=== PATIENT | male | born 1950 | race Caucasian/White ===

== ENCOUNTER 2016-05-21 07:10 | Day surgery (SDC) | payer OTHER ==
[~2016-05-21 07:10] MED LIST: Lactated Ringers 1,000 ML IV SCH; ceFAZolin 2 GM in Premix Bag 1 BAG IV ONE
--- NOTE | 2016-05-21 07:29 | PCM.PREANE ---
Preanesthetic Assessment - Anesthesia/Transfusion/Family Hx Anesthesia History: Prior Anesthesia Without Reaction Other Type of Anesthesia Reaction Comment: pt states "last knee scope was done under local due to his smoking" Family History of Anesthesia Reaction: No Transfusion History: No Prior Transfusion(s) - Review of Systems General: No Symptoms Pulmonary: No Symptoms Cardiovascular: No Symptoms Gastrointestinal: No symptoms Neurological: No Symptoms Other: Reports: None - Physical Assessment NPO Status Date: 05/20/16 O2 Sat by Pulse Oximetry: 95 Respiratory Rate: 18 Vital Signs: Last Vital Signs Temp 36.9 C 05/21/16 07:24 Pulse 62 05/21/16 07:24 Resp 18 05/21/16 07:24 BP 135/87 05/21/16 07:24 Pulse Ox 95 05/21/16 07:24 Height: 1.8 m Weight: 102.512 kg ASA Class: 2 Mental Status: Alert & Oriented x3 Airway Class: Mallampati = 2 Dentition: Reports: Missing Tooth/Teeth ROM/Head Extension: Full Lungs: Clear to auscultation, Normal respiratory effort Cardiovascular: Regular Rate, Regular Rhythm - Allergies Allergies/Adverse Reactions: Allergies Allergy/AdvReac Type Severity Reaction Status Date / Time No Known Allergies Allergy Verified 01/27/16 14:30 - Anesthesia Plan Pre-Op Medication Ordered: None - Acknowledgements Anesthesia Type Planned: General Anesthesia, MAC (Potassium pending) Pt an Appropriate Candidate for the Planned Anesthesia: Yes Alternatives and Risks of Anesthesia Discussed w Pt/Guardian: Yes Pt/Guardian Understands and Agrees with Anesthesia Plan: Yes PreAnesthesia Questionnaire HEENT History: Reports: Allergic rhinitis, Epistaxis, Hard of hearing Other HEENT History: wears glasses, has ana hearing aids, (partial but does not wear them) Cardiovascular History: Reports: Hypertension Respiratory History: Reports: Asthma Gastrointestinal History: Reports: Other (see below) Other Gastrointestinal History: occasional heartburn Musculoskeletal History: Reports: Gout, Other (see below) Other Musculoskeletal History: chronic neck pain Endocrine/Metabolic History: Reports: Diabetes, type II, Obesity/BMI 30+, Other (see below) Other Endocrine/Metabolic History: was previously on metformin but no longer takes Dermatologic History: Reports: Other (see below) Other Dermatologic History: dry skin - Past Surgical History Head Surgeries/Procedures: Reports: None Musculoskeletal Surgical History: Reports: Arthroscopic knee, Carpal tunnel, Shoulder surgery - SUBSTANCE USE Smoking Status *Q: Former Smoker Tobacco Use Within Last Twelve Months: No Days Per Week of Alcohol Use: 0 Number of Drinks Per Day: 0 Total Drinks Per Week: 0 Recreational Drug Use History: No - HOME MEDS Home Medications: Home Meds Allopurinol [Zyloprim] 300 mg PO DAILY 04/19/14 [History] Budesonide/Formoterol [Symbicort 160-4.5 MCG] 1 puff INH ASDIRECTED PRN [History] Hydrochlorothiazide 25 mg PO DAILY 04/19/14 [History] Potassium Chloride [Klor-Con M20] 2 tab PO DAILY 04/19/14 [History] amLODIPine Besylate [Amlodipine Besylate] 10 mg PO DAILY 04/19/14 [History] Albuterol Sulfate [Proair Hfa] 2 puff INH Q4H PRN 05/17/16 [History] Fluticasone Propionate [Flonase Allergy Relief] 2 spray NASBOTH DAILY 05/17/16 [ History] Furosemide 40 mg PO BID 05/17/16 [History] Loratadine 10 mg PO DAILY 05/17/16 [History] Losartan Potassium 25 mg PO DAILY 05/17/16 [History] Oxybutynin Chloride 5 mg PO BID 05/17/16 [History] Polyethylene Glycol 3350 1 dose PO ASDIRECTED PRN 05/17/16 [History] Urea 1 applic TOP ASDIRECTED PRN 05/17/16 [History] - CURRENT (IN HOUSE) MEDS Current Meds: Current Medications Lactated Ringer's (Ringers, Lactated) 1,000 mls @ 125 mls/hr IV ASDIRECTED VAN Last Admin: 05/21/16 07:26 Dose: 125 mls/hr Discontinued Medications Cefazolin Sodium/Dextrose 2 gm (/ Premix) 50 mls @ 100 mls/hr IV ONETIME ONE Stop: 05/21/16 05:29 Preanesthetic Assessment - ANESTHESIA/TRANSFUSION/FAMILY HX Anesthesia/Transfusion History: No Prior Transfusion(s), Prior Anesthesia Other Type of Anesthesia Reaction Comment: pt states "last knee scope was done under local due to his smoking" Family History of Anesthesia Reaction: No Other Intubation History Comment: no known problems - PHYSICAL ASSESSMENT O2 Sat by Pulse Oximetry: 95 RR: 18 Vital Signs: Last Vital Signs Temp 36.9 C 05/21/16 07:24 Pulse 62 05/21/16 07:24 Resp 18 05/21/16 07:24 BP 135/87 05/21/16 07:24 Pulse Ox 95 05/21/16 07:24 Height: 1.8 m Weight: 102.512 kg - ALLERGIES Allergies/Adverse Reactions: Allergies Allergy/AdvReac Type Severity Reaction Status Date / Time No Known Allergies Allergy Verified 01/27/16 14:30
[2016-05-21] MEDS ORDERED: Propofol 200 MG/20 ML SDV ONE (07:34)
[2016-05-21] MEDS ORDERED: fentaNYL 100 MCG/2 ML SDV ONE (07:34)
[2016-05-21] MEDS ORDERED: Midazolam 1 MG/ML 2 ML SDV ONE (07:34)
[2016-05-21] MEDS ORDERED: Bupivacaine 0.25%/EPINEPHrine 1:200,000 10 ML SDV ONE (08:36)
--- NOTE | 2016-05-21 09:36 | PCM.OPNOTE ---
- General Post-Op/Procedure Note Date of Surgery/Procedure: 05/21/16 Operative Procedure(s): excisional biopsy scalp lesion Findings: 2 X 1.5 scalp lesion on L post occiput, excised with incision 3.1 X 1.5 cm; [id number] Pre Op Diagnosis: scalp lesion Post-Op Diagnosis: Same Anesthesia Technique: Moderate sedation Primary Surgeon: Pacheco Montes Pathology: sent Complications: None Condition: Good
[2016-05-21] MEDS ORDERED: Acetaminophen/oxyCODONE 325-10 MG Tab PO PRN (09:38)
--- NOTE | 2016-05-21 09:47 | PCM.POSTAN ---
POST ANESTHESIA ASSESSMENT - MENTAL STATUS Mental Status: alert, oriented - RESPIRATORY Respiratory Status: respiratory rate WNL, airway patent - CARDIOVASCULAR CV Status: pulse rate WNL, blood pressure stable - GASTROINTESTINAL GI Status: no symptoms - POST OP HYDRATION Hydration Status: adequate & stable
--- NOTE | 2016-05-21 09:48 | PCM48HPAN ---
Post Anesthesia Note - EVALUATION WITHIN 48HRS OF ANESTHETIC Vital Signs in Normal Range: Yes Patient Participated in Evaluation: Yes Respiratory Function Stable: Yes Airway Patent: Yes Cardiovascular Function Stable: Yes Hydration Status Stable: Yes Pain Control Satisfactory: Yes Nausea and Vomiting Control Satisfactory: Yes Mental Status Recovered: Yes
[2016-05-21 10:00] VITALS: BP 104/76
--- NOTE | 2016-05-21 10:25 | OR ---
SURGEON: Pacheco Montes MD DATE OF PROCEDURE: 05/21/2016 PREOPERATIVE DIAGNOSIS: Scalp lesion. POSTOPERATIVE DIAGNOSIS: Scalp lesion. PROCEDURE PERFORMED: Excision and biopsy. COMPLICATIONS: None. FINDINGS: A sandpaper appearance skin lesion, about 2 x 1.5, at the posterior left occiput area, excised en bloc. Stitch marked right side, sent for pathology. PROCEDURE IN DETAIL: The patient was taken to the operating room, placed in a supine position. Upon induction of mild general sedation, the patient was prepped and draped in a sterile fashion. Time-out was being called. The patient was identified, procedure identified, antibiotic identified. Procedure was then started. Using a skin scalpel, a fish-mouth incision was made about 3.1 x 1.5 cm and this was excised en bloc and sent for pathology. The right borderline was marked with stitches and followed with good hemostasis achieved by using electrocautery. Then, the wound was closed with a running baseball stitches using 3-0 Ethilon and followed with bacitracin cream. The patient was then awakened, transferred to recovery room in hemodynamically stable condition. The patient tolerated the procedure well. There were no intraoperative complications. Dr. Montes was present throughout procedure. As always, thank you for the kind referral. SAMY / MONALISA /[id number]
== END 2016-05-21 10:15 | disposition home or self-care (01) ==
LOC: MW.SDS 07:10
PROVIDERS: ATTEND Surgery
PROC: 0HB0XZZ Excision of Scalp Skin, External Approach (ICD-10-PCS; principal; 2016-05-21)
DX: L82.1 Other seborrheic keratosis (principal); I10 Essential (primary) hypertension; E11.9 Type 2 diabetes mellitus without complications; J45.909 Unspecified asthma, uncomplicated; M10.9 Gout, unspecified; E66.9 Obesity, unspecified; Z79.899 Other long term (current) drug therapy; Z87.891 Personal history of nicotine dependence
CPT/HCPCS: 11422; 36415; 84132; 88305; J0690; J2250; J3010; J7120; 00300; J2704

== ENCOUNTER 2019-08-16 15:13 | Emergency (ER) | payer OTHER ==
[2019-08-16 15:24] VITALS: BP 144/83; PULSE 75
--- NOTE | 2019-08-16 15:24 | EDM.PDOC ---
ED HPI GENERAL MEDICAL PROBLEM - General Chief Complaint: Skin Complaint Stated Complaint: FISH HOOK IN FINGER Time Seen by Provider: 08/16/19 15:13 - History of Present Illness INITIAL COMMENTS - FREE TEXT/NARRATIVE: History of present illness: Patient presents with a fishhook in his right index fingertip. This occurred 1 hour prior to arrival he was fishing and caught himself. He tried to remove the hook but it was too painful and he was unable to do so his tetanus is up-to-date he has no other complaints no other concerns today. Review of systems: As per history of present illness and below otherwise all systems reviewed and negative. Past medical history: As per history of present illness and as reviewed below otherwise noncontributory. Surgical history: As per history of present illness and as reviewed below otherwise noncontributory. Social history: No reported history of drug or alcohol abuse. Family history: As per history of present illness and as reviewed below otherwise noncontributory. Physical exam: HEENT: Atraumatic, normocephalic, pupils reactive, negative for conjunctival pallor or scleral icterus, mucous membranes moist, throat clear, neck supple, nontender, trachea midline. Lungs: Clear to auscultation, breath sounds equal bilaterally, chest nontender. Heart: S1S2, regular, negative for clicks, rubs, or JVD. Abdomen: Soft, nondistended, nontender. Negative for masses or hepato splenomegaly. Negative for costovertebral tenderness. Pelvis: Stable nontender. Genitourinary: Deferred. Rectal: Deferred. Extremities: Atraumatic, negative for cords or calf pain. Neurovascular unrem arkable. Medium size fishhook in the tip of his right dominant index finger Neuro: Awake, alert, oriented. Cranial nerves II through XII unremarkable. Cerebellum unremarkable. Motor and sensory unremarkable throughout. Exam nonfocal. Diagnostics: [] Therapeutics: [] Impression: [] Plan: Remove the hook [] Definitive disposition and diagnosis as appropriate pending reevaluation and review of above. - Related Data Allergies Allergy/AdvReac Type Severity Reaction Status Date / Time No Known Allergies Allergy Verified 01/27/16 14:30 Home Meds: Home Meds Budesonide/Formoterol [Symbicort 160-4.5 MCG] 1 puff INH ASDIRECTED PRN 04/19/14 [History] Potassium Chloride [Klor-Con M20] 2 tab PO DAILY 04/19/14 [History] allopurinoL [Zyloprim] 300 mg PO DAILY 04/19/14 [History] amLODIPine Besylate [Amlodipine Besylate] 10 mg PO DAILY 04/19/14 [History] hydroCHLOROthiazide [Hydrochlorothiazide] 25 mg PO DAILY 04/19/14 [History] Albuterol Sulfate [Proair Hfa] 2 puff INH Q4H PRN 05/17/16 [History] Fluticasone Propionate [Flonase Allergy Relief] 2 spray NASBOTH DAILY 05/17/16 [History] Furosemide 40 mg PO BID 05/17/16 [History] Loratadine 10 mg PO DAILY 05/17/16 [History] Losartan Potassium 25 mg PO DAILY 05/17/16 [History] Oxybutynin Chloride 5 mg PO BID 05/17/16 [History] Urea 1 applic TOP ASDIRECTED PRN 05/17/16 [History] polyethylene glycoL 3350 [Polyethylene Glycol 3350] 1 dose PO ASDIRECTED PRN 05/17/16 [History] Docusate Sodium [Colace] 100 mg PO DAILY #20 capsule 05/21/16 [Rx] oxyCODONE HCl/Acetaminophen [Percocet 5-325 mg Tablet] 1 each PO Q6HR #30 tablet 05/21/16 [Rx] Past Medical History HEENT History: Reports: Allergic Rhinitis, Epistaxis, Hard of Hearing Other HEENT History: wears glasses, has ana hearing aids, (partial but does not wear them) Cardiovascular History: Reports: Hypertension Respiratory History: Reports: Asthma Gastrointestinal History: Reports: Other (See Below) Other Gastrointestinal History: occasional heartburn Musculoskeletal History: Reports: Gout, Other (See Below) Other Musculoskeletal History: chronic neck pain Endocrine/Metabolic History: Reports: Diabetes, Type II, Obesity/BMI 30+, Other (See Below) Other Endocrine/Metabolic History: was previously on metformin but no longer takes Dermatologic History: Reports: Other (See Below) Other Dermatologic History: dry skin - Past Surgical History Head Surgeries/Procedures: Reports: None Musculoskeletal Surgical History: Reports: Arthroscopic Knee, Carpal Tunnel, Shoulder Surgery Social & Family History - Family History Family Medical History: Noncontributory ED ROS GENERAL - Review of Systems Review Of Systems: See Below ED EXAM, SKIN/RASH Exam: See Below Course - Vital Signs Text/Narrative:: Procedure: 5 mils of 1% lidocaine was used to perform a digital block in the palmar aspect of the right dominant index finger. After adequate analgesia was achieved the fishhook was removed. No Complications patient tolerated well - Orders/Labs/Meds Meds: Medications Discontinued Medications Generic Name Dose Route Start Last Admin Trade Name Hollie PRN Reason Stop Dose Admin Lidocaine HCl 5 ml 08/16/19 15:16 Xylocaine-Mpf 1% INJECT 08/16/19 15:17 ONETIME ONE Departure - Departure Time of Disposition: 15:35 Disposition: Home, Self-Care 01 Condition: Good Clinical Impression: [place] injury to finger Qualifiers: Encounter type: initial encounter Laterality: right Qualified Code(s): S69.91XA - Unspecified injury of right wrist, hand and finger(s), initial encounter - Discharge Information *PRESCRIPTION DRUG MONITORING PROGRAM REVIEWED*: Not Applicable *COPY OF PRESCRIPTION DRUG MONITORING REPORT IN PATIENT ADORE: Not Applicable Referrals: Aneesh Ruiz LITHOGRAPHIC CAMERA OPERATOR [Primary Care Provider] - Additional Instructions: The following information is given to patients seen in the emergency department who are being discharged to home. This information is to outline your options for follow-up care. We provide all patients seen in our emergency department with a follow-up referral. The need for follow-up, as well as the timing and circumstances, are variable depending upon the specifics of your emergency department visit. If you don't have a primary care physician on staff, we will provide you with a referral. We always advise you to contact your personal physician following an emergency department visit to inform them of the circumstance of the visit and for follow-up with them and/or the need for any referrals to a consulting specialist. The emergency department will also refer you to a specialist when appropriate. This referral assures that you have the opportunity for follow-up care with a specialist. All of these measure are taken in an effort to provide you with optimal care, which includes your follow-up. Under all circumstances we always encourage you to contact your private physician who remains a resource for coordinating your care. When calling for follow-up care, please make the office aware that this follow-up is from your recent emergency room visit. If for any reason you are refused follow-up, please contact the [facility] Emergency Department at and asked to speak to the emergency department charge nurse.
== END 2019-08-16 15:49 | disposition home or self-care (01) ==
LOC: MW.ED 15:13
DX: S60.450A Superficial foreign body of right index finger, initial encounter (principal); I10 Essential (primary) hypertension; J45.909 Unspecified asthma, uncomplicated; E11.9 Type 2 diabetes mellitus without complications; E66.9 Obesity, unspecified; Z68.31 Body mass index [BMI] 31.0-31.9, adult; Z79.899 Other long term (current) drug therapy; W45.8XXA Other foreign body or object entering through skin, initial encounter
CPT/HCPCS: 64450; 99282; J2001

== ENCOUNTER 2020-02-27 14:04 | Emergency (ER) | payer MEDICARE, OTHER ==
[2020-02-27] MEDS ORDERED: Diphtheria,Pertussis(Acell),Tetanus Vaccine 0.5 ML Syringe IM ONE (14:13)
[2020-02-27] MEDS ORDERED: Bacitracin Oint 1 GM U/D Packet TOP ONE (14:13)
[2020-02-27] MEDS ORDERED: Lidocaine 1% with EPINEPHrine 1:100,000 10 ML MDV INJECT ONE (14:13)
--- NOTE | 2020-02-27 14:18 | EDM.PDOC ---
ED HPI GENERAL MEDICAL PROBLEM - General Chief Complaint: Lower Extremity Injury/Pain Stated Complaint: CUT TO RIGHT FOOT Time Seen by Provider: 02/27/20 14:06 Source of Information: Reports: Patient History Limitations: Reports: No Limitations - History of Present Illness INITIAL COMMENTS - FREE TEXT/NARRATIVE: HISTORY AND PHYSICAL: History of present illness: Patient is a 69-year-old male who presents to the emergency room with complaints of a laceration to the right foot. He states he was using an auger to drill a hole in the ice when the auger kicked back and hit his foot. The blade had cut through the patient's shoe resulting in a laceration to the mid solar surface of his foot under his great toe. Patient denies any fever, chills, headache, change in vision, syncope or near syncope. Denies any chest pain, back pain, shortness of breath or cough. Denies any GI or symptoms. Patient has been eating and drinking appropriately. Unsure of last Tdap. Review of systems: As per history of present illness and below otherwise all systems reviewed and negative. Past medical history: As per history of present illness and as reviewed below otherwise noncontri butory. Surgical history: As per history of present illness and as reviewed below otherwise noncontributory. Social history: See social history for further information Family history: As per history of present illness and as reviewed below otherwise noncontributory. Physical exam: General: Well developed and well nourished. Alert and orientated x 3. Nontoxic in appearance and in no acute distress. Vital signs are stable and have been reviewed by me. Nursing notes were reviewed. HEENT: Atraumatic, normocephalic, pupils equal and reactive bilaterally, negative for conjunctival pallor or scleral icterus, mucous membranes moist, TMs normal bilaterally, throat clear, neck supple, nontender, trachea midline. No drooling or trismus noted. No meningeal signs. No hot potato voice noted. Lungs: Clear to auscultation, breath sounds equal bilaterally, chest nontender. Normal work of breathing, no accessory muscles used. Heart: S1S2, regular rate and rhythm without overt murmur Abdomen: Soft, nondistended, nontender. Negative for masses or hepatosplenomegaly. Negative for costovertebral tenderness. Skin: 7 cm laceration to mid foot below the right great toe (along the arch). Remaining skin is intact, warm, dry. No lesions or rashes noted. Hematologic: No petechiae or purpra. Mucosa appropriate color and normal nail bed color and refill. Extremities: Moves all extremities per self without difficulty or deficits, negative for cords or calf pain. Neurovascular unremarkable. Neuro: Awake, alert, oriented. Cranial nerves II through XII unremarkable. Cerebellum unremarkable. Motor and sensory unremarkable throughout. Exam nonfocal. Psychiatric: Mood and affect are appropriate. Normal thought process. Answering questions appropriately. Notes: *This patient was seen and evaluated during the 2019 SARS-CoV-2 novel coronavirus pandemic period. Community viral transmission is ongoing at time of this encounter and the emergency department is operating under pandemic response procedures. 1% lidocaine was used to anesthetize the area. Chlorhexidine and wound wash was used to cleanse the area. Usual and customary procedures were followed for suture placement. 4-0 nylon, #7 interrupted sutures were placed. Patient tolerated well. Bacitracin nonstick dressing was applied. I have talked with the patient about today's findings, in addition to providing specific details fo r plan of care. Reassessment at the time of disposition demonstrates that the patient is in no acute distress. Patient does have a history of diabetes, no counseling was provided and we discussed in great detail signs and symptoms that would prompt them to return to the Emergency Department. [facility] and [facility]. Medication, follow up and supportive care measures were reviewed and discussed. Voices understanding and is agreeable to plan of care. Denies any further questions or concerns at this time. Diagnostics: Foot x-ray Therapeutics: Tdap, lidocaine, bacitracin, Keflex Prescription: Keflex Impression: Laceration Plan: 1. Keep the area clean and dry. Continue to monitor for signs of infection. Sutures to be removed in 7-10 days. 2. You can alternate Tylenol and ibuprofen as needed for pain and fever management. 3. We encourage you to follow up with your primary care provider and/or recommended specialist in the next few days for re-evaluation and further care/management. 4. If your symptoms should worsen, new symptoms develop or any of the signs and symptoms we discussed should arise please return to the emergency room or call 911 (if needed). Definitive disposition and diagnosis as appropriate pending reevaluation and review of above. Right Foot Pain Score (Numeric/FACES): 2 - Related Data Allergies Allergy/AdvReac Type Severity Reaction Status Date / Time No Known Allergies Allergy Verified 02/27/20 14:13 Home Meds: Home Meds Budesonide/Formoterol [Symbicort 160-4.5 MCG] 1 puff INH ASDIRECTED PRN 04/19/14 [History] Potassium Chloride [Klor-Con M20] 2 tab PO DAILY 04/19/14 [History] allopurinoL [Zyloprim] 300 mg PO DAILY 04/19/14 [History] amLODIPine Besylate [Amlodipine Besylate] 10 mg PO DAILY 04/19/14 [History] hydroCHLOROthiazide [Hydrochlorothiazide] 25 mg PO DAILY 04/19/14 [History] Albuterol Sulfate [Proair Hfa] 2 puff INH Q4H PRN 05/17/16 [History] Fluticasone Propionate [Flonase Allergy Relief] 2 spray NASBOTH DAILY 05/17/16 [History] Furosemide 40 mg PO BID 05/17/16 [History] Loratadine 10 mg PO DAILY 05/17/16 [History] Losartan Potassium 25 mg PO DAILY 05/17/16 [History] Oxybutynin Chloride 5 mg PO BID 05/17/16 [History] Urea 1 applic TOP ASDIRECTED PRN 05/17/16 [History] polyethylene glycoL 3350 [Polyethylene Glycol 3350] 1 dose PO ASDIRECTED PRN 05/17/16 [History] Docusate Sodium [Colace] 100 mg PO DAILY #20 capsule 05/21/16 [Rx] oxyCODONE HCl/Acetaminophen [Percocet 5-325 mg Tablet] 1 each PO Q6HR #30 tablet 05/21/16 [Rx] cephALEXin [Keflex] 500 mg PO BID 5 Days #10 cap 02/27/20 [Rx] Past Medical History HEENT History: Reports: Allergic Rhinitis, Epistaxis, Hard of Hearing Other HEENT History: wears glasses, has ana hearing aids, (partial but does not wear them) Cardiovascular History: Reports: Hypertension Respiratory History: Reports: Asthma Gastrointestinal History: Reports: Other (See Below) Other Gastrointestinal History: occasional heartburn Musculoskeletal History: Reports: Gout, Other (See Below) Other Musculoskeletal History: chronic neck pain Endocrine/Metabolic History: Reports: Diabetes, Type II, Obesity/BMI 30+, Other (See Below) Other Endocrine/Metabolic History: was previously on metformin but no longer takes Dermatologic History: Reports: Other (See Below) Other Dermatologic History: dry skin - Past Surgical History Head Surgeries/Procedures: Reports: None Musculoskeletal Surgical History: Reports: Arthroscopic Knee, Carpal Tunnel, Shoulder Surgery Social & Family History - Family History Family Medical History: No Pertinent Family History Review of Systems - Review of Systems Review Of Systems: Comprehensive ROS is negative, except as noted in HPI. ED EXAM, GENERAL - Physical Exam Exam: See Below (See dictation) ED TRAUMA EXTREMITY PROCEDURES - Laceration/Wound Repair Right foot Lac/Wound Length In cm: 7 Appearance: Subcutaneous, Linear Distal NVT: Neuro & Vascular Intact, No Tendon Injury Anesthetic Type: Local Local Anesthesia - Lidocaine (Xylocaine): 1% Plain Local Anesthetic Volume: Other (6) Skin Prep: Chlorhexidine (Hibiciens), Saline, Sterile Drape Saline Irrigation (cc's): 500 Exploration/Debridement/Repair: Wound Explored, In a Bloodless Field, Explored to Base, No Foreign Material Found Closed With: Sutures Suture Size: 4-0 # of Sutures: 7 Suture Type: Nylon, Interrupted, Simple Drain Placement: No Sterile Dressing Applied: Provider Tetanus Status Addressed: Yes Complications: No Course - Vital Signs Last Recorded V/S: Last Vital Signs Temp 97.3 F 02/27/20 14:14 Pulse 97 02/27/20 14:14 Resp 16 02/27/20 14:14 BP 128/92 H 02/27/20 14:14 Pulse Ox 94 L 02/27/20 14:14 - Orders/Labs/Meds Orders: Active Orders 24 hr Category Date Time Status Vaccines to be Administered [RC] PER UNIT ROUTINE Care 02/27/20 14:14 Active Foot 2V Rt [CR] Stat Exams 02/27/20 14:13 Taken Meds: Medications Discontinued Medications Generic Name Dose Route Start Last Admin Trade Name Freq PRN Reason Stop Dose Admin Bacitracin 1 dose 02/27/20 14:13 02/27/20 14:36 Bacitracin Oint 1 Gm TOP 02/27/20 14:14 1 dose ONETIME ONE Administration Cephalexin 500 mg 02/27/20 14:59 02/27/20 15:07 Keflex PO 02/27/20 15:00 500 mg ONETIME ONE Administration Diphtheria/Tetanus/Acell Pertussis 0.5 ml 02/27/20 14:13 02/27/20 14:37 Boostrix IM 02/27/20 14:14 0.5 ml .ONCE ONE Administration Diphtheria/Tetanus/Acell Pertussis Confirm 02/27/20 14:35 02/27/20 14:38 Boostrix Administered 02/27/20 14:36 Not Given Dose 0.5 ml .ROUTE .STK-MED ONE Lidocaine HCl Confirm 02/27/20 14:21 02/27/20 14:33 Xylocaine-Mpf 1% Administered 02/27/20 14:22 Not Given Dose 2 mls @ as directed .ROUTE .STK-MED ONE Lidocaine HCl 2 ml 02/27/20 14:23 02/27/20 14:36 Xylocaine-Mpf 1% INJECT 02/27/20 14:24 2 ml ONETIME ONE Administration Lidocaine/Epinephrine 10 ml 02/27/20 14:13 02/27/20 14:38 Xylocaine 1% With Epinephrine 1:100,000 INJECT 02/27/20 14:14 Not Given ONETIME ONE Departure - Departure Time of Disposition: 15:18 Disposition: Home, Self-Care 01 Clinical Impression: Laceration - Discharge Information Prescriptions: cephALEXin [Keflex] 500 mg PO BID 5 Days #10 cap Instructions: Sutures, Jas, or Adhesive Wound Closure, [id number] Referrals: PCP,Not In Area [Primary Care Provider] - Forms: ED Department Discharge Additional Instructions: The following information is given to patients seen in the emergency department who are being discharged to home. This information is to outline your options for follow-up care. We provide all patients seen in our emergency department with a follow-up referral. The need for follow-up, as well as the timing and circumstances, are variable depending upon the specifics of your emergency department visit. If you don't have a primary care physician on staff, we will provide you with a referral. We always advise you to contact your personal physician following an emergency department visit to inform them of the circumstance of the visit and for follow-up with them and/or the need for any referrals to a consulting specialist. The emergency department will also refer you to a specialist when appropriate. This referral assures that you have the opportunity for follow-up care with a specialist. All of these measure are taken in an effort to provide you with optimal care, which includes your follow-up. Under all circumstances we always encourage you to contact your private physician who remains a resource for coordinating your care. When calling for follow-up care, please make the office aware that this follow-up is from your recent emergency room visit. If for any reason you are refused follow-up, please contact the Emergency Department at and asked to speak to the emergency department charge nurse. Primary Care [id number], [place] [address] [facility] [address] [place] [id number] Thank you for choosing the [facility] emergency department in [place] for your medical needs today. It was a pleasure caring for you. Today you were seen in the emergency department for laceration repair. 1. Keep the area clean and dry. Continue to monitor for signs of infection. Sutures to be removed in 7-10 days. 2. You can alternate Tylenol and ibuprofen as needed for pain and fever management. 3. We encourage you to follow up with your primary care provider and/or recommended specialist in the next few days for re-evaluation and further care/management. 4. If your symptoms should worsen, new symptoms develop or any of the signs and symptoms we discussed should arise please return to the emergency room or call 911 (if needed). Sepsis Event Note (ED) - Focused Exam Vital Signs: Vital Signs Temp Pulse Resp BP Pulse Ox 02/27/20 14:14 97.3 F 97 16 128/92 H 94 L - My Orders Last 24 Hours: My Active Orders 02/27/20 14:13 Foot 2V Rt [CR] Stat 02/27/20 14:14 Vaccines to be Administered [RC] PER UNIT ROUTINE - Assessment/Plan Last 24 Hours: My Active Orders 02/27/20 14:13 Foot 2V Rt [CR] Stat 02/27/20 14:14 Vaccines to be Administered [RC] PER UNIT ROUTINE
[2020-02-27] MEDS ORDERED: Lidocaine 1% 2 ML ONE (14:21)
[2020-02-27] MEDS ORDERED: Lidocaine 1% PF 2 ML SDV INJECT ONE (14:23)
[2020-02-27] MEDS ORDERED: Diphtheria,Pertussis(Acell),Tetanus Vaccine 0.5 ML Syringe ONE (14:35)
[2020-02-27] MEDS ORDERED: Cephalexin 500 MG Cap PO ONE (14:59)
[2020-02-27 15:17] VITALS: BP 135/97; PULSE 94
--- NOTE | 2020-02-27 15:25 | CR ---
Indication: Auger hit right foot. Technique: Three views of the right foot. Comparison: None Findings: Mild degenerative changes of the right foot are identified. A tiny plantar calcaneal spur is identified. No fracture or subluxation is identified. Impression: Mild degenerative change. No fracture. Dictated by Kirsten Carrington MD @ Feb 27 2020 3:23PM Signed by Dr. Kirsten Carrington @ Feb 27 2020 3:24PM
== END 2020-02-27 15:17 | disposition home or self-care (01) ==
LOC: MW.ED 14:04
DX: S91.311A Laceration without foreign body, right foot, initial encounter (principal); I10 Essential (primary) hypertension; J45.909 Unspecified asthma, uncomplicated; E11.9 Type 2 diabetes mellitus without complications; E66.9 Obesity, unspecified; Z68.30 Body mass index [BMI] 30.0-30.9, adult; Z23 Encounter for immunization; Z79.899 Other long term (current) drug therapy; W26.8XXA Contact with other sharp object(s), not elsewhere classified, initial encounter
CPT/HCPCS: 12002; 73620; 90471; 99283; A9270; J2001; 99282